=== PATIENT | female | born 1975 | race Caucasian/White ===

== ENCOUNTER 2020-02-23 05:17 | Emergency (ER) | payer SELFPAY ==
[~2020-02-23] VITALS: Ht 154.9 cm; Wt 86.6 kg
[2020-02-23 05:26] VITALS: Ht 154.9 cm; Wt 86.6 kg
[2020-02-23 06:04] LABS: CALCIUM 8.6 mg/dL (8.5-10.1); CARBON DIOXIDE 24.9 mmol/L (21-32); CHLORIDE SERUM 106 mmol/L (98-107); CREATININE SERUM 0.6 mg/dL (0.6-1.0); GFR1 > 60 mL/min; GLUCOSE SERUM 124 mg/dL (74-106); POTASSIUM SERUM 3.4 mmol/L (3.5-5.1); SODIUM SERUM 141 mmol/L (136-145)
[2020-02-23 06:06] LABS: C REACTIVE PROTEIN 0.4 mg/dL (<=0.9)
[2020-02-23 06:09] LABS: ALBUMIN 3.7 g/dL (3.4-5.0); ALKALINE PHOSPHATASE 45 U/L (46-116); ALT/SGPT 18 U/L (14-59); AST/SGOT 12 U/L (15-37); BILIRUBIN TOTAL 0.23 mg/dL (0.20-1.00); CHOLESTEROL 147 mg/dL (<200); CHOLESTEROL/HDL RATIO 3.2; HDL CHOLESTEROL 46 mg/dL (40-60); LIPASE 125 IU/L (73-393); TOTAL PROTEIN, SERUM 6.9 g/dL (6.4-8.2); TRIGLYCERIDES 82 mg/dL (<150)
[2020-02-23 06:16] LABS: BASOPHIL % 0.4 % (0-2); PLATELET COUNT 264 x10^3mcL (130-400); RED CELL DISTRIBUTION WIDTH 14.5 % (11.5-14.5)
--- NOTE | 2020-02-23 06:26 | NUR ---
UNABLE TO OBTAINED ABG. DR DUTTON MADE AWARE.
[2020-02-23 07:43] VITALS: BP 135/70
== END 2020-02-23 07:43 | disposition home or self-care (01) ==
LOC: ED 05:17
PROVIDERS: Specialist
DX: J18.1 Lobar pneumonia, unspecified organism (principal)
CPT/HCPCS: 83880; 87804; J0456; J0696; J1885; J2060; J7030; J7050; J7060; Q0092; U0002